=== PATIENT | female | born 1950 | race Caucasian/White ===

== ENCOUNTER 2024-11-22 05:52 | Day surgery (SDC) | payer MEDICARE, SELFPAY ==
[2024-11-22] VITALS (10 sets, daily range): BP systolic 125–152; BP diastolic 62–73; PULSE 60–93; RESP 12–16; TEMP 36.1–36.8; O2SAT 96–99; BMI 28.9
--- OUTSIDE RECORDS SUMMARY | 2024-11-22 05:57 | XMS RPT_ITS | CCD ---
Author Organization [facility] ion Partnership [facility] Care Team Providers Care Quiller Hand Name Role Phone Prerna Meléndez MD Primary Care Provider Unavailable Primary Care Provider Vishal Batista DO Gail Unavailable [phone] Nitin Underwood LPN Unavailable Unavailable Prerna Meléndez MD Primary Care Provider [phone] Unavailable Primary Care Provider VALENTINA Lay Attending Unavailable Dr. Jalil Garcia MD Attending Provider Jalil Garcia Attending Unavailable Jalil Garcia Attending Unavailable Care Physician, No Primary Primary Care Unava ilable Jalil Garcia Referring Unavailable Jalil Garcia Attending Unavailable Allergies Allergy Classification Reported Allergen(s) Allergy Type Date of Onset Reaction(s) Facility (8 sources) pain relievers [Other] Propensity to adverse reactions 05-18-19 06 Other: See Comments [facility] Work Phone: (2 sources) diphenhydrAMINE Drug Allergy Comprehensiv e Internal Medicine; [facility] Work Phone: (1 source) PAIN RELIVER SUPER STRENGTH; Translations: [PAIN RELIVER SUPER STRENGTH] Propensity to adverse reactions to drug (disorder) 09-10-19 25 [facility] Repository (2 sources) Opioids - Morphine Analogues Propensity to adverse reactions 10-06-19 25 NEEDS FOLLOW-UP [facility] (1 source) Procaine Drug Allergy 11-21-19 25 Nausea/Vom/Isis rrhea [facility] (1 source) Procaine Drug Allergy 11-21-19 [facility] Repository (1 source) Opioids - Morphine Analogues Drug allergy (disorder) 11-21-19 25 [facility] Repository Medications Current Medications Medication Drug Class(es) Dates Sig (Normalized) Sig (Original) Ashwagandha Root Extract 300 mg capsule (1 source) Start: 11-08-2024 take 1 capsule by mouth once daily Jayson Root Extract 300 mg capsule Active 300 mg PO DAILY November 08, 2024 12:00am Calcium (10 sources) Phosphate Binder, Calcium Start: 05-18-2005 CALCIUM 600 600 MG TAB 1200 mg per day 0 05/18/2005 Active Comment on above: 1200 mg per day cholecalciferol 0.025 mg oral tablet (10 sources) Vitamin D take 1 tablet by mouth once daily Cholecalciferol, Vitamin D3, (VITAMIN D) 1,000 unit Tab Take 1,000 Units by mouth once daily. Active Comment on above: Take 1,000 Units by mouth once daily. cholecalciferol 1000 unt / vitamin k2 0.09 mg disintegrating oral tablet (1 source) Vitamin D Start: 11-08-2024 take 1 tablet by mouth once daily Vitamin D3-Vitamin K2 (D3 Plus K2 Dots) 25 mcg (1,000 unit)-90 mcg tablet,disintegra ting Active 1 {tbl} PO DAILY November 08, 2024 12:00am ferrous sulfate (10 sources) FERROUS SULFATE (IRON ORAL) Take by mouth. Active FERROUS SULFATE (IRON ORAL) Take by mouth. 0 Active Comment on above: Take by mouth. fexofenadine hydrochloride 180 mg oral tablet (3 sources) Histamine-1 Receptor Antagonist Start: take 1 tablet by mouth twice daily Fexofenadine (Raysa Allergy) 180 mg tablet Active 180 mg PO TWICE A DAY November 08, 2024 12:00am take 1 mg by mouth once daily fe xofenadine 180 mg oral tablet daily (180 mg) Active Magnesium (1 source) Start: 11-08-2024 take 1 tablet by mouth once daily Magnesium 250 mg tablet Active 250 mg PO DAILY November 08, 2024 12:00am nitrofurantoin, macrocrystals 25 mg / nitrofurantoin, monohydrate 75 mg oral capsule (1 source) Nitrofuran Antibacterial Start: 09-09-2024 End: 09-14-2024 take 1 capsule by mouth twice daily nitrofurantoin monohydrate and macrocrystal (MACROBID) 100 mg capsule Indications: Burning with urination Take 1 capsule by mouth two times a day for 5 days. 10 capsule 09/09/2024 09/14/2024 Active OM-3/E/LINOL/ALA/OL EIC/GLA/LIP (OMEGA 3-6-9 ORAL) (10 sources) OM-3/E/LINOL/ALA /OL EIC/GLA/LIP (OMEGA 3-6-9 ORAL) Take by mouth. Active OM-3/E/LINOL/ALA /OLEIC/GLA/LIP (OMEGA 3-6-9 ORAL) Take by mouth. 0 Active Comment on above: Take by mouth. Tigrett 1-Sqr-Lue-Fish Oil (Tigrett-3) 350 mg-235 mg- 90 mg-597 mg capsule,delayed release(DR/EC) (1 source) Start: 11-08-2024 Tigrett 3-Otr-Bfh-Fish Oil (Tigrett-3) 350 mg-235 mg- 90 mg-597 mg capsule,delayed release(DR/EC) Active 1 NMA PO DAILY November 08, 2024 12:00am vitamin a 2.4 mg oral capsule (1 source) Vitamin A Start: 11-08-2024 Vitamin A 2,400 mcg capsule Active 2400 ug PO DAILY November 08, 2024 12:00am vitamin b12 1 mg oral tablet (10 sources) Vitamin B12 take 1 tablet by mouth once daily cyanocobalamin (VITAMIN B-12) 1,000 mcg ORAL Tab Take 1,000 mcg by mouth once daily. Active Comment on above: Take 1,000 mcg by [facility] once daily. Completed/Discontinued Medications Medication Drug Class(es) Dates Sig (Normalized) Sig (Original) benzonatate 100 mg oral capsule (2 sources) Non-narcotic Antitussive Start: 4 End: 5 take 2 capsules by mouth three times daily as needed for cough Benzonatate 100 MG capsule Discontinued 200 mg PO 3 TIMES DAILY NEEDED as needed for Cough 20 0 May 01, 2014 1:00am November 08, 2024 3:32pm escitalopram 20 mg oral tablet (2 sources) Serotonin Reuptake Inhibitor Start: 4 End: 5 take 1 tablet by mouth once daily Escitalopram Oxalate 20 MG tablet Discontinued 20 mg PO DAILY May 01, 2014 1:00am November 08, 2024 3:32pm hydroCHLOROthiazide 25 mg oral tablet (2 sources) Thiazide Diuretic Start: 4 End: 5 take 1 tablet by mouth once daily Hydrochlorothiazide 25 MG tablet Discontinued 25 mg PO DAILY May 01, 2014 1:00am November 08, 2024 3:32pm lutein 20 mg oral tablet (4 sources) End: 2 lutein 20 mg Tab Take by mouth. 0 01/26/2022 Discontinued Comment on above: Take by mouth. pravastatin sodium 20 mg oral tablet (2 sources) HMG-CoA Reductase Inhibitor Start: 4 End: 5 take 1 tablet by mouth at bedtime Pravastatin 20 MG tablet Discontinued 20 mg PO AT BEDTIME May 01, 2014 1:00am November 08, 2024 3:32pm Problems Active Problems Problem Classification Problem Date Documented Date Episodic/Chronic Disorders of lipid metabolism (10 sources) Hyperlipidemia; Translations: [Hyperlipidemia, unspecified] Onset: 03-11-2006 06-20-2015 Chronic Diverticulosis and diverticulitis (10 sources) Diverticulosis of colon; Translations: [Diverticulosis of large intestine without perforation or abscess without bleeding] Onset: 07-12-2006 07-12-2006 Chronic Genitourinary symptoms and ill-defined conditions (2 sources) Scalding pain on urination ; Translations: [Dysuria] Onset: 09-09-2024 09-09-2024 Episodic Other eye disorders (2 sources) Dermatochalasis of right upper eyelid; Translations: [Dermatochalasis of both upper eyelids] 10-05-2024 Episodic Other eye disorders (2 sources) Ptosis of bilateral eyebrows; Translations: [Brow ptosis, bilateral] 10-05-2024 Episodic Other female genital disorders (10 sources) Simple endometrial glandular hyperplasia without atypia; Translations: [Benign endometrial hyperplasia] Onset: 02-11-2010 02-11-2010 Chronic Other nutritional; endocrine; and metabolic disorders (10 sources) Metabolic syndrome X; Translations: [Metabolic syndrome] Onset: 03-11-2006 03-11-2006 Chronic Other nutritional; endocrine; and metabolic disorders (4 sources) Overweight in adulthood with body mass index of 25 or more but less than 30; Translations: [BMI 28.0-28.9,adult] 02-17-2023 Episodic Other screening for suspected conditions (not mental disorders or infectious disease) (6 sources) Mammography assessment (Category 3) - Probably benign finding, short interval follow-up; Translations: [Other abnormal and inconclusive findings on diagnostic imaging of breast] Episodic Prolapse of female genital organs (20 sources) Disorder of rectum; Translations: [Rectocele] Onset: 12-29-2010 12-29-2010 Chronic Residual codes; unclassified (4 sources) Influenza vaccination declined; Translations: [Influenza vaccination declined (Renamed from Refused influenza vaccine)] 02-17-2023 Episodic Residual codes; unclassified (4 sources) Non-smoker; Translations: [Nonsmoker] 02-17-2023 Episodic Past or Other Problems Problem Classification Problem Date Documented Da te Episodic/Chronic Benign neoplasm of uterus (10 sources) Uterine leiomyoma; Translations: [Leiomyoma of uterus, unspecified] Onset: 11-10-2007 11-10-2007 Episodic Cancer of cervix (10 sources) Cervical atypism; Translations: [Atypical squamous cells of undetermined significance on cytologic smear of cervix (ASC-US)] Onset: 12-29-2010 12-29-2010 Episodic Essential hypertension (2 sources) Benign essential hypertension; Translations: [Essential (primary) hypertension] Onset: 03-11-2006 Resolved: 09-06-2018 09-06-2018 Chronic Hemorrhoids (10 sources) External hemorrhoids; Translations: [Residual hemorrhoidal skin tags] Onset: 07-12-2006 07-12-2006 Episodic Menopausal disorders (2 sources) Menopausal symptom; Translations: [Menopausal and female climacteric states] Onset: 05-28-2011 Resolved: 10-16-2016 10-16-2016 Chronic Menstrual disorders (2 sources) Irregular periods; Translations: [Irregular menstruation, unspecified] Onset: 11-10-2007 Resolved: 05-28-2011 05-28-2011 Chronic Other and unspecified benign neoplasm (2 sources) Benign neoplasm of colon; Translations: [Benign neoplasm of colon, unspecified] Onset: 07-12-2006 Resolved: 09-11-2016 09-11-2016 Episodic Other female genital disorders (2 sources) Mucous polyp of cervix; Translations: [Polyp of cervix uteri] Onset: 12-23-2009 Resolved: 01-06-2012 01-06-2012 Episodic Other inflammatory condition of skin (2 sources) Pruritus of genital organs; Translations: [Anogenital pruritus, unspecified] Onset: 11-10-2007 Resolved: 12-23-2009 12-23-2009 Episodic Unclassified (2 sources) Results Test Name Value Interpretation Reference Range Katiuska jimenez Plastic Surgery Visit Report on 11-20-2024 Plastic Surgery Visit Report [facility]astic [facility] Surgery [address], [address] [place] [address] OFFICE VISIT Date of Service: 11/20/24 MR#: [id number] Acct: [id number] Name: KARIS LOCKHART Rep #: [id number] : 1950 Provider: Dr. Jalil Garcia MD Age/Sex: 74/F Location: [facility] Status: Signed Intake Vital Signs 10/05/24 14:46 11/20/24 16:26 Height 4 ft 11 in Weight: 145 lb BMI 29.2 BP 146/54 H Blood Pressure Location Rt brachial Position Sitting Respiration 18 Pulse 55 L Pulse Source Monitor Pulse Oximetry (%) 95 Oxygen Delivery Method room air Intake Visit Reasons: PREOP Chief Complaint: upper Bleph Is patient in pain?: No Allergies procaine (From Novocain) Adverse Reaction (Severe, Verified 11/20/24 16:25) Nausea/Vom/Diarrhea Opioids - Morphine Analogues Adverse Reaction (Verified 11/20/24 16:25) NEEDS FOLLOW-UP Medications ???Medication ???Instructions ???Recorded ???Confirmed ???Type kylaha root extract 300 mg 300 mg PO DAILY 11/08/24 11/20/24 History capsule fexofenadine 180 mg tablet 180 mg PO BID 11/08/24 11/20/24 Hi story (Raysa Allergy) magnesium 250 mg tablet 250 mg PO DAILY 11/08/24 11/20/24 History omega 3 350 mg-dha 235 mg-epa 90 1 cap PO DAILY 11/08/24 11/20/24 H istory mg-fish oil 597 mg capsule,delay rel (Tigrett-3) vitamin A 2,400 mcg capsule 2,400 mcg PO DAILY 11/08/24 History vitamin D3 25 mcg (1,000 unit)-vit 1 tab PO DAILY 11/08/24 11/20/24 History K2 90 mcg disintegrating tablet (D3 Plus K2 Dots) Have you fallen in the past year?: No Nurse's Note: pre op appt [facility] Medical History Wears glasses Kidney stones Migraine headache MTHFR gene mutation Non-smoker History of irregular heartbeat Surgical History History of loop electrosurgical excision procedure (LEEP) of cervix Hx of bilateral breast reduction surgery Family History Other Breast cancer Hypertension Social History Smoking Status: Never smoker HPI PREOP Details: Karis Lockhart is a delightful 74-year-old female 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 Patient reports that she has been having issues with seeing for the past couple of years as her eyelid skin has become more more redundant. She reports that she has to move her entire neck when stopped at a stoplight to see the light, or when looking up at people were taller than her, as the upper eyelid skin obstructs her vertical and horizontal gaze. Patient has never had any eye pathology before. She has never had any eye surgery. She does have dry eyes. Patient is not a smoker. No personal or family history of bleeding or clotting problems. Current encounter, 20 November 2024: I talked to the patient extensively today about the upcoming surgery. We talked about the risks, benefits, and alternatives of the surgery, as well as the details of the surgery (including planned incisions, and anticipated postoperative course and swelling). Exam Details Pupils: PERRL EOM: EOM intact bilaterally Scalp: High hair line Forehead: Convex. Some Chronic frontalis use to overcome dermatochalasis/brow ptosis. (horizontal rhytids at rest). I had her close her eyes, relax her forehead, and then open her eyes again and there was significant visual field obstruction. Eyebrows: Ptotic at the orbital rim bilaterally. Patient wears makeup to pain brows, but also has hair (does not completely pluck). Symmetric brow elevation ( frontal branch of facial nerve working). Eyelids: * MRD 1 was 5 mm * Good levator function (approximately 14 mm) * No lagophthalmos * Snap back test: Slow, and there's 1 cm of lower eyelid retraction * Neutral vector * Upper lid dermatochalasis bilaterally, obstructing vertical gaze bilaterally secondary to the skin. The skin is hanging over her eyelashes and the lateral portions of her lid margin. Lower eyelid has puffy retroseptal fat with tear trough Coding Level of Care Code No Charge Diagnoses Brow ptosis, bilateral H57.813 Dermatochalasis of both upper eyelids H02.831; H02.834 Assessment and Plan (No Qualifiers) Assessment and Plan (1) Brow ptosis, bilateral: Status: Acute (2) Dermatochalasis of both upper eyelids: Status: Acute Plan Patient has 2 separate problems, one is brow ptosis contributing to the redundant upper eyelid skin, the other is the redundant upper eyelid skin in general. I showed the patient the contributions of the brow lift by lifting her brows in front of a mirror today in (more content not included)... Normal [facility] Plastic Surgery Visit Report on 10-05-2024 Plastic Surgery Visit Report [facility] [address] [place] [address] OFFICE VISIT Date of Service: 10/05/24 MR#: [id number] Acct: [id number] Name: KARIS LOCKHART Rep #: [id number] : 1950 Provider: Dr. Jalil Garcia MD Age/Sex: 74/F Location: [facility] Status: Signed Intake Vital Signs 10/05/24 14:34 10/05/24 14:46 Height 4 ft 11 in Weight: 145 lb BMI 29.2 BP 152/84 H Blood Pressure Location Lt brachial Position Sitting Respiration 18 Pulse 61 Pulse Source Monitor Pulse Oximetry (%) 97 Oxygen Delivery Method room air Intake Visit Reasons: UPPER BLEPH Chief Complaint: upper Bleph Is patient in pain?: No Allergies Opioids - Morphine Analogues Adverse Reaction (Verified 10/05/24 14:34) NEEDS FOLLOW-UP Medications ???Medication ???Instructions ???Recorded ???Confirmed ???Type benzonatate 100 mg capsule 200 mg (2 x 100 mg) PO TID PRN PRN 05/01/14 10/05/24 Rx Cough #20 caps escitalopram oxalate 20 mg tablet 20 mg PO DAILY 05/01/14 10/05/24 History hydrochlorothiazide 25 mg tablet 25 mg PO DAILY 05/01/14 10/05/24 H istory pravastatin 20 mg tablet 20 mg PO QHS 05/01/14 10/05/24 His tory Have you fallen in the past year?: No PFSH Family History Other Breast cancer Hypertension Social History Smoking Status: Never smoker HPI UPPER BLEPH Details: Karis Lockhart is a delightful 74-year-old female 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 Patient reports that she has been having issues with seeing for the past couple of years as her eyelid skin has become more more redundant. She reports that she has to move her entire neck when stopped at a stoplight to see the light, or when looking up at people were taller than her, as the upper eyelid skin obstructs her vertical and horizontal gaze. Patient has never had any eye pathology before. She has never had any eye surgery. She does have dry eyes. Patient is not a smoker. No personal or family history of bleeding or clotting problems. ROS General General: Yes good health; No fatigue, fever(s) or weight loss HENMT HENMT: No rhinitis, sore throat/mouth sore, nasal congestion, contacts or glaucoma Endo Endocrine: No thyroid disease, polydipsia, heat intolerance, cold intolerance, hepatitis or excessive urine Skin Skin: No Bleeding, bruising, changing moles or suspicious lesion Musc Musculoskeletal: No joint pain, joint stiffness, muscle weakness, back pain, osteoarthritis or Muscle aches/ myalgia Neuro Neurological: No headache(s), No lightheadedness and No numbness Cardio Cardiovascular: No chest pain, pacemaker, fatigue or shortness of breat with exertion Psych Psychiatric: No depression, claustrophobia or anxiety Resp Respiratory: No spitting up, shortness of breath, sleep apnea, asthma, emphysema, TB, Cough or Smoker Gastro Gastrointestinal: No diarrhea, constipation, blood in stool, nausea, vomiting or abdominal bloating David Hematologic: No anemia, No bleeding and No abnormal bleeding Genitourinary: No urinary frequency, blood in urine or incontinence Exam Details Pupils: PERRL EOM: EOM intact bilaterally Scalp: High hair line Forehead: Convex. Some Chronic frontalis use to overcome dermatochalasis/brow ptosis. (horizontal rhytids at rest). I had her close her eyes, relax her forehead, and then open her eyes again and there was significant visual field obstruction. Eyebrows: Ptotic at the orbital rim bilaterally. Patient wears makeup to pain brows, but also has hair (does not completely pluck). Symmetric brow elevation ( frontal branch of facial nerve working). Eyelids: * MRD 1 was 5 mm * Good levator function (approximately 14 mm) * No lagophthalmos * Snap back test: Slow, and there's 1 cm of lower eyelid retraction * Neutral vector * Upper lid dermatochalasis bilaterally, obstructing vertical gaze bilaterally secondary to the skin. The skin is hanging over her eyelashes and the lateral portions of her lid margin. Lower eyelid has puffy retroseptal fat with tear trough Coding Level of Care Code Off vis,new,level 3 Diagnoses Brow ptosis, bilateral H57.813 Dermatochalasis of both upper eyelids H02.831; H02.834 Assessment and Plan (No Qualifiers) Assessment and Plan (1) Brow ptosis, bilateral: Status: Acute (2) Dermatochalasis of both upper eyelids: Status: Acute Plan Patient has 2 separate problems, one is brow ptosis contributing to the redundant upper eyelid skin, the other is the redundant upper eyelid skin in general. I showed the patient the contributions of the brow lift by lifting her brows in (more content not included)... Normal [facility] Bacteria Ur Culton Bacteria identified Cx Nom (U) ORGANISM ID: 1 50,000-<100,000 CFU/ml Normal urogenital clinton Normal [facility] Comment on above: Performed By: #### 6 30-4 #### [facility] CLIA [id number] [address] [place] [address] [place] CNOVon 09-09-2024 CNOV Office Visit (UCWSTR ) KARIS LOCKHART ([id number]) 1950 F Date Time Provider Department 09/09/24 8:15 AM [facility] During your visit today, we recorded the following information about you: Temperature Pulse Respiration Blood pressure 97.5 degrees 66/minute 16/minute 122/66 Weight 67.9 kg Valentina Lopes APRN.RED HAT ENGINEER 09/09/2024 8:21 AM Signed [facility] Subjective Karis Lockhart is a 74 year old female. Patient presents with: Urinary Problem: burning with urination and nausea x 2 days Patient came in with complaints of burning when she urinates. Patient also had a little nausea. Patient says this is her normal UTI symptoms. Patient denies fever chills abdominal pain or back pain. Patient is traveling up from [place]. The history is provided by the patient. No infection control rn was used. Review of Systems Constitutional: Negative. HENT: Negative. Genitourinary: Positive for dysuria. Objective BP 122/66 Pulse 66 Temp 36.4 ?C (97.5 ?F) Resp 16 Wt 67.9 kg (149 lb 11.1 oz) LMP 01/31/2010 SpO2 96% BMI 31.29 kg/m? Physical Exam Constitutional: Appearance: Normal appearance. HENT: Right Ear: Tympanic membrane, ear canal and external ear normal. Left Ear: Tympanic membrane, ear canal and external ear normal. Mouth/Throat: Mouth: Mucous membranes are moist. Pharynx: Oropharynx is clear. Eyes: Pupils: Pupils are equal, round, and reactive to light. Cardiovascular: Rate and Rhythm: Normal rate and regular rhythm. Heart sounds: Normal heart sounds. Pulmonary: Effort: Pulmonary effort is normal. Breath sounds: Normal breath sounds. Abdominal: General: Abdomen is flat. Palpations: Abdomen is soft. Tenderness: There is no abdominal tenderness. There is no right CVA tenderness, left CVA tenderness or guarding. Neurological: Mental Status: She is alert. 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 Cholecalciferol, Vitamin D3, (VITAMIN D) 1,000 unit Tab Take 1,000 Units by mouth once daily. OM-3/E/LINOL/ALA/OLEI C/GLA/LIP (OMEGA 3-6-9 ORAL) Take by mouth. cyanocobalamin (VITAMIN B-12) 1,000 mcg ORAL Tab Take 1,000 mcg by mouth once daily. FERROUS SULFATE (IRON ORAL) Take by mouth. CALCIUM 600 600 MG TAB 1200 mg per day FAMILY HISTORY Problem Relation Age of Onset Breast Cancer Mother other (Shazia Stein) Mother 2010 Heart Father kidney problems other (Gall bladder) Father Breast Cancer Maternal Grandmother Diabetes Other uncle paternal Social History Tobacco Use Smoking status: Never Smokeless tobacco: Never Vaping Use Vaping status: Never Used Substance Use Topics Alcohol use: Yes Comment: occassionally Drug use: No {ASSESSMENT/PLAN: 1. Burning with urination - ICD9: 788.1, ICD10: R30.0 acute - Send urine for culture - Patient education for prevention given - UA DIP, URINE (POC) - BACTERIAL CULTURE, URINE - NITROFURANTOIN MONOHYDRATE AND MACROCRYSTAL 100 MG ORAL CAP Patient agreeable to care plan Valentina Lopes APRN.RED HAT ENGINEER MDM Procedures Allergies As of Date: 09/09/2024 Noted Allergy Reaction PAIN RELIVER SUPER STRENGTH 09/09/2024 16 - Unknown Comments: "narcotics" sensitive- spacy feeling Date Reviewed: 09/09/2024 Reviewed by: Shruti Atwood MA - Fully Assessed Reason for Visit: Urinary Problem [252] Cmt: burning with urination and nausea x 2 days Primary Visit Diagnosis:Burning with urination [R30.0] Order(s):UA DIP, URINE (POC) [7198743] Order #: [id number]. #:[id number] BACTERIAL CULTURE, URINE [SQURCUL] Order #: [id number]. #:[id number] nitrofurantoin monohydrate and macrocrystal (MACROBID) 100 mg capsuleTake 1 capsule by mouth two times a day for 5 days.Disp: 10 capsuleRfl: 0 Prescriptions as of 09/09/2024 - nitrofurantoin monohydrate and macrocrystal (MACROBID) 100 mg capsule Take 1 capsule by mouth two times a day for 5 days. - Cholecalciferol, Vitamin D (more content not included)... Normal [facility] UA DIP, URINE (POC)on 2024 BILIRUBIN UA (POCT) Negative Negative [facility] CLARITY UA (POCT) Clear [facility] COLOR UA (POCT) Yellow [facility] GLUCOSE UA (POCT) Negative Negative mg/dL [facility] Hemoglobin Ql (U) Trace-intact Abnormal Negative [facility] Interpretation and review of laboratory results Abnormal [facility] KETONE UA (POCT) Negative Negative mg/dL [facility] LEUKOCYTES UA (POCT) Small Abnormal Negative [facility] NITRITE UA (POCT) Negative Negative [facility] PH UA (POCT) 6.5 4.5 - 8.0 [facility] Protein Ql (U) Negative Negative mg/dL [facility] SPECIFIC GRAVITY UA (POCT) 1.01 1.005 - 1.030 [facility] UROBILINOGEN UA (POCT) 0.2 Normal E.U./dL [facility] Location:[facility], [address] [place] [address], [place], [address] [facility] POINT OF CARE [facility] RENETTA SCREENING W TOMOon 01-25 [facility] BREAST LTD RTon 3 [facility] RENETTA DIAGNOSTIC BILATon 01-21 [facility] BREAST LTD RTon 2 [facility] No Panel Informationon 02-26 [facility] Vital Signs Date Time Vital Sign Value Performing Clinician Facility 11-20-2024 16:26-0400 Diastolic blood pressure 54 mm[Hg] Dr. Jalil Garcia MD Work Phone: [facility] 11-20-2024 16:26-0400 Heart rate 55 /min Dr. Jalil Garcia MD Work Phone: [facility] 11-20-2024 16:26-0400 Respiratory rate 18 /min Dr. Jalil Garcia MD Work Phone: [facility] 11-20-2024 16:26-0400 SaO2% (BldA) [Mass fraction] 95 % Dr. Jalil Garcia MD Work Phone: [facility] 11-20-2024 16:26-0400 Systolic blood pressure 146 mm[Hg] Dr. Jalil Garcia MD Work Phone: [facility] 10-05-2024 14:46-0400 Body height 149.[address] Jalil Garcia MD Work Phone: [facility] 10-05-2024 14:46-0400 Body mass index (BMI) [Ratio] 29.2 kg/m2 Dr. Jalil Garcia MD Work Phone: [facility] 10-05-2024 14:46-0400 Body weight 65.[address] Jalil Garcia MD Work Phone: [facility] 10-05-2024 14:34-0400 Diastolic blood pressure 84 mm[Hg] Dr. Jalil Garcia MD Work Phone: [facility] 10-05-2024 14:34-0400 Heart rate 61 /min Dr. Jalil Garcia MD Work Phone: [facility] 10-05-2024 14:34-0400 Respiratory rate 18 /min Dr. Jalil Garcia MD Work Phone: [facility] 10-05-2024 14:34-0400 SaO2% (BldA) [Mass fraction] 97 % Dr. Jalil Garcia MD Work Phone: [facility] 10-05-2024 14:34-0400 Systolic blood pressure 152 mm[Hg] Dr. Jalil Garcia MD Work Phone: [facility] 09-09-2024 08:11-0400 Body mass index (BMI) [Ratio] 31.29 kg/m2 Valentina Lopes APRN.RED HAT ENGINEER Work Phone: [facility] 09-09-2024 08:11-0400 Body temperature 97.5 [degF] Valentina Lopes APRN.RED HAT ENGINEER Work Phone: [facility] 09-09-2024 08:11-0400 Body weight 67.9 kg Valentina Lopes APRN.RED HAT ENGINEER Work Phone: [facility] 09-09-2024 08:11-0400 Diastolic blood pressure 66 mm[Hg] Valentina Lopes APRN.RED HAT ENGINEER Work Phone: [facility] 09-09-2024 08:11-0400 Heart rate 66 /min Valentina Lopes APRN.RED HAT ENGINEER Work Phone: [facility] 09-09-2024 08:11-0400 Respiratory rate 16 /min Valentina Lopes APRN.RED HAT ENGINEER Work Phone: [facility] 09-09-2024 08:11-0400 SaO2% (BldA) [Mass fraction] 96 % Valentina Lopes APRN.RED HAT ENGINEER Work Phone: [facility] 09-09-2024 08:11-0400 Systolic blood pressure 122 mm[Hg] Valentina Lopes APRN.RED HAT ENGINEER Work Phone: [facility] 02-17-2023 14:55-0400 Body height 149.86 cm [facility] Work Phone: 02-17-2023 14:55-0400 Body mass index (BMI) [Ratio] 28.78 kg/m2 [facility] Work Phone: 02-17-2023 14:55-0400 Body surface area Derived from formula 1.6 m2 [facility] Work Phone: 02-17-2023 14:55-0400 Body temperature 96.9 [degF] Nitin Underwood [facility] Work Phone: 02-17-2023 14:55-0400 Body weight 64.64 kg Nitin Kj [facility] Work Phone: 02-17-2023 14:55-0400 Diastolic blood pressure 72 mm[Hg] Nitin Kj [facility] Work Phone: Comment on above: Patient Position: Sitting; Cuff Location : Left Arm; Cuff Size: Standard 02-17-2023 14:55-0400 Heart rate 60 /min Nitincory Underwood [facility] Work Phone: Comment on above: Pattern: Regular 02-17-2023 14:55-0400 Respiratory rate 18 /min Nitincory Underwood [facility] Work Phone: Comment on above: Pattern: Unlabored 02-17-2023 14:55-0400 SaO2% (BldA) [Mass fraction] 96 % Nitin Kj [facility] Work Phone: Comment on above: Room air 02-17-2023 14:55-0400 Systolic blood pressure 126 mm[Hg] Nitin Irma [facility] Work Phone: Comment on above: Patient Position: Sitting; Cuff Location : Left Arm; Cuff Size: Standard Encounters Encounter Date Encounter Type Care Provider Facility Start: 11-22-2024 ambulatory No Primary Car e Physician Facility:[facility] Start: 11-20-2024 End: 11-20-[address] Jalil Garcia MD -[facility] Work Phone: Start: 11-20-2024 End: 11-20-2024 ambulatory Jalil Garcia -[facility] Start: 10-05-2024 End: 10-05-[address] Jalil Garcia MD -[facility] Work Phone: Start: 10-05-2024 End: 10-05-2024 ambulatory Jalil Garcia [facility] Work Phone: Start: 09-09-2024 End: 11-09-2024 Follow-up encounter Valentina Lopes SOUND PRINTER.RED HAT ENGINEER Work Phone: [facility] Start: 09-09-2024 End: 09-09-2024 Patient encounter procedure Valentina Lopes APRN.RED HAT ENGINEER Work Phone: [facility] Comment on above: Burning with urinati on (Primary Dx) Start: 09-09-2024 End: 09-09-2024 ambulatory VALENTINA LOPES Facility:[facility] Start: 02-17-2023 End: 02-17-2023 Initial preventive medicine new patient 67yrs&> Gail Batista DO Work Phone: [facility] Start: 02-17-2023 End: 02-17-2023 Patient encounter status Gail Batsita DO Work Phone: [facility] Work Phone: Start: 01-26-2023 Documentation procedure Mammog sakina Coordinator [facility] Start: 01-26-2023 Letter encounter Mammography Coordinator [facility] Department Start: 01-25-2023 End: 01-25-2023 Subsequent hospital visit by physician [facility] Comment on above: Encounter for screen ing mammogram for malignant neoplasm of breast [Z12.31] Start: 09-22-2022 End: 09-22-2022 Subsequent hospital visit by physician [facility] Work Phone: Radiology Comment on above: Abnormal mammogram [ R92.8] Start: 01-21-2022 End: 01-21-2022 Subsequent hospital visit by physician [facility] Work Phone: Radiology Comment on above: Category 3 mammograp hy result with short follow-up interval suggested for probably benign finding [R92.8] Start: 11-25-2021 ambulatory Leeanna Harding MD Work Phone: OB/Gynecology Comment on above: Mammogram Start: 11-20-2021 End: 11-20-2021 Subsequent hospital visit by physician Screen Mammo [facility] Comment on above: Canceled (CC cx: Equ ipment, Prep, Appropriateness) Start: 02-26-2021 End: 02-26-2021 Subsequent hospital visit by physician Procedure Mammo [facility] Comment on above: Abnormal mammogram [ R92.8] Start: 09-06-2018 Patient encounter procedure Leeanna Harding MD Work Phone: [facility] Work Phone: Procedures Date Procedure Procedure Detail Performing Clinician Start: 09-09-2024 Urnls dip stick/tabl et rgnt auto w/o microscopy Valentina Lopes APRN.RED HAT ENGINEER Work Phone: Start: 01-28-2023 End: 01-28-2023 [facility]: Normal. Dr. Annmarie Mcgee Start: 01-25-2023 End: 01-25-2023 Screening mammography [facility] Comment on above: [facility] Start: 09-22-2022 Us breast uni real t navi with image limited Leeanna Harding MD Work Phone: Start: 01-21-2022 Us breast uni real t navi with image limited Ashlyaparna Sewell SOUND PRINTER.CNM Work Phone: Start: 01-21-2022 Diagnostic mammograp hy computer-aided detcj bi Ashly Sewell SOUND PRINTER.CNM Work Phone: Start: 02-26-2021 Bx breast w/device 1 st lesion ultrasound guid Phillip Stewart MD Work Phone: Start: 02-26-2021 Diagnostic mammograp hy computer-aided detcj uni Phillip Stewart MD Work Phone: Start: 02-24-2021 Mammography Leeanna Harding MD Work Phone: Start: 09-12-2018 End: 09-12-2018 Bone density scan Nitin Irma [facility] Comment on above: [facility] Start: 08-31-2018 Lipid 1996 panel - S amirah or Plasma Mammography Coordinator Start: 11-27-2016 End: 11-27-2016 Screening colonoscopy Nitin Irma [facility] Comment on above: Normal. [facility] chary Ybarra Start: 11-27-2016 Colonoscopy Leeanna Harding MD Work Phone: Start: 10-16-2016 End: 10-16-2016 Microscopic examination of cervical Papanicolaou smear Nitin Kj [facility] Comment on above: Dr. Ben Harding Start: 01-28-2010 End: 01-28-2010 Hysteroscopy Nitin Kj [facility] Start: 07-24-1996 End: 07-24-1996 Reduction mammoplasty, bilateral Nitin Kj [facility] Comment on above: Dr. Arteaga Plan of Treatment Date Care Activity Detail Author Start: 2027 RSV Vaccine (1 - 1-d ose 75+ series) RSV Vaccine (1 - 1-dose 75+ series) [facility] Start: 11-27-2026 Colonoscopy COLONOSCOPY [facility] Start: 11-27-2026 COLORECTAL CANCER SCREENING COLORECTAL CANCER SCREENING [facility] Start: 11-27-2026 Screening for malign ant neoplasm of colon [facility] Start: 01-01-2025 Influenza vaccination [facility] Start: 05-03-2024 Advance Directive Discussion Advance Directive Discussion [facility] Start: 05-03-2024 Medicare Advantage Annual Wellness Visit Medicare [facility] Annual Wellness Visit [facility] Start: 01-26-2024 Mammography Mammogram Screening [facility] Start: 01-26-2024 Screening for malign ant neoplasm of breast Mammogram Screening [facility] Start: 01-02-2024 Covid-19 Vaccine ( season) Covid-19 Vaccine ( season) [facility] Start: 09-07-2023 Pneumococcal Vaccine : 50+ (3 of 3 - PCV20 or PCV21) Pneumococcal Vaccine: 50+ (3 of 3 - PCV20 or PCV21) [facility] Start: 09-01-2023 Lipid 1996 panel - Serum or Plasma Lipid Screening [facility] Start: 09-01-2023 Lipid panel Lipid Screening [facility] Start: 09-01-2023 LIPID SCREEN LIPID SCREEN [facility] Start: 02-17-2023 Glucose quantitative blood xcpt reagent strip GLUCOSE (87793) [facility] Work Phone: Start: 02-17-2023 Lipid panel LIPID PANEL (76433) [facility] Work Phone: Start: 02-17-2023 Procedure Education Eprescribe d prescriptions (G8553) [facility] Work Phone: Start: 01-01-2023 Influenza vaccination Influenza Vacc ine (#1) [facility] Start: 12-10-2022 COLOGUARD (FIT-DNA) COLOGUARD (FIT-D NA) [facility] Start: 12-10-2022 Screening for malign ant neoplasm of colon Cologuard (FIT-DNA) [facility] Start: 12-05-2022 FECAL OCCULT BLOOD FECAL OCCULT BLOO D [facility] Start: 12-05-2022 Screening for malign ant neoplasm of colon Fecal Occult Blood [facility] Start: 05-03-2022 Advance Directive Discussion Advance Directive Discussion [facility] Start: 05-03-2022 Depression Assessment Depression Ass essment [facility] Start: 02-24-2022 Mammography MAMMOGRAM [facility] Start: 01-01-2022 Influenza vaccination INFLUENZA (#1) [facility] Start: 08-31-2021 DIABETES SCREEN DIABETES SCREEN [facility] Start: 08-31-2021 Diabetes Screening Diabetes Screenin g [facility] Start: 05-03-2021 ADVANCE DIRECTIVE DISCUSSION ADVANCE DIRECTIVE DISCUSSION [facility] Start: 09-07-2019 Pneumococcal Vaccine : 65+ (2 - PPSV23 or PCV20) Pneumococcal Vaccine: 65+ (2 - PPSV23 or PCV20) [facility] Start: 09-07-2019 PNEUMOCOCCAL: 65+ (2 - PPSV23 or PCV20) PNEUMOCOCCAL: 65+ (2 - PPSV23 or PCV20) [facility] Start: 10-27-2016 Urine microalbumin profile [facility] Start: 07-03-2013 SHINGRIX VACCINE (2 of 3) SHINGRIX VACCINE (2 of 3) [facility] Start: 2012 RSV Vaccine (1 - 1-d ose 60+ series) RSV Vaccine (1 - 1-dose 60+ series) [facility] Start: [address] COLONOGRAPHY [facility] Start: 1997 FECAL OCCULT BLOOD FECAL OCCULT BLOO D [facility] Start: 1997 Screening for malign ant neoplasm of colon [facility] Start: 1997 SIGMOIDOSCOPY SIGMOIDOSCOPY [facility] Start: 1970 Anxiety Screening Anxiety Screening [facility] Start: 1970 Depression Screening Depression Scre ening [facility] Start: 1964 Adult depression screening assessment DEPRESSION SCREENING [facility] Start: 1952 COVID-19 VACCINE (#1) COVID-19 VACCI NE (#1) [facility] Bacteria identified in Urine by Culture BACTERIAL CULTURE, URINE Microbiology Routine Burning with urination Ordered: 09/09/2024 [facility] Work Phone: Comment on above: Ordered: 09/09/2024 End: 12-25-2022 Diagnostic mammography computer-aided detcj uni [facility] Radiology Routine Category 3 mammography result with short follow-up interval suggested for probably benign finding 1 Occurrences starting 11/25/2021 until 12/25/2022 [facility] Work Phone: Comment on above: 1 Occurrences starti ng 11/25/2021 until 12/25/2022 End: 12-25-2022 Us breast uni real time with image limited US BREAST LTD RT Radiology Routine Category 3 mammography result with short follow-up interval suggested for probably benign finding 1 Occurrences starting 11/25/2021 until 12/25/2022 [facility] Work Phone: Comment on above: 1 Occurrences starti ng 11/25/2021 until 12/25/2022 [facility] Immunizations Immunization Date Immunization Notes Care Provider Lida zelaya 09-06-2018 pneumococcal conjuga te vaccine, 13 valent Leeanna Harding MD Work Phone: [facility] Work Phone: 10-26-2016 tetanus and diphther ia toxoids, adsorbed, preservative free, for adult use (5 Lf of tetanus toxoid and 2 Lf of diphtheria toxoid) Leeanna Harding MD Work Phone: [facility] Work Phone: 10-26-2016 tetanus toxoid, redu jhony diphtheria toxoid, and acellular pertussis vaccine, adsorbed Gail Barbaon DO Work Phone: [facility] Work Phone: 05-08-2013 zoster vaccine, live Leeanna Harding MD Work Phone: [facility] 03-11-2009 influenza virus vaccine, unspecified formulation Leeanna Harding MD Work Phone: [facility] 03-11-2009 influenza, injectabl e, quadrivalent, preservative free Gail Lynne DO Work Phone: [facility]; [facility] Work Phone: 09-06-2008 pneumococcal polysaccharide vaccine, 23 valent Gail Barbaon DO Work Phone: [facility]; [facility] Work Phone: 03-11-2006 tetanus and diphther ia toxoids, adsorbed, preservative free, for adult use (2 Lf of tetanus toxoid and 2 Lf of diphtheria toxoid) Leeanna Harding MD Work Phone: [facility] Payers Date Payer Category Payer Self-pay 2018 Medicare MMO MEDICARE MMO MEDADVANTAGE PPO [id number] 2018-Present [phone] [address] [place] [address] PPO [id number] 2018 Medicare MMO MEDICARE MMO MEDADVANTAGE PPO [id number] 2018-Present [phone] [address] [place] [address] PPO [id number] 2018 Medicare (Managed Care) MMO [employer] PPO [id number] 2018 Unknown [id number] Unknown Unknown [id number] Unknown [id number] Unknown [id number] Social History Date Type Detail Facility Start: 09-17-2011 End: 11-08-2024 Tobacco smoking status NHIS Never smoked tobacco [facility] Start: 01-24-2021 End: 01-26-2022 Alcohol intake Current drinker of alcohol (finding) [facility] Start: 11-27-2016 History SDOH Alcohol Comment occassionally [facility] Start: 1950 Sex Assigned At Female [facility] Start: 01-26-2021 End: 01-21-2022 Exposure to SARS-CoV-2 (event) Not sure [facility] Work Phone: Start: 09-17-2011 End: 01-26-2022 Tobacco use and exposure Smokeless tobacco non-user [facility] Start: 01-26-2022 End: 01-25-2023 History of Social function [facility] Start: 01-26-2022 End: 01-25-2023 Tobacco use panel [facility] National Score (1-10 0), lower number is lower risk 55 [facility] Start: 01-03-2020 Gender identity Identifies as female gender (finding) [facility] Start: 01-03-2020 Sexual orientation Heterosexual (finding) [facility] Functional Status Date Assessment Result Facility 05-08-2014 Are you deaf, or do you have serious difficulty hearing No 05/08/2014 8:59 AM Araseli Villagran RN No [facility] 05-08-2014 Are you blind, or do you have serious difficulty seeing, even when wearing glasses No 05/08/2014 8:59 AM Araseli Villagran RN No [facility] 05-08-2014 Do you have serious difficulty walking or climbing stairs No 05/08/2014 8:59 AM Araseli Villagran RN No [facility] 05-08-2014 Do you have difficul ty dressing or bathing No 05/08/2014 8:59 AM Araseli Villagran RN No [facility] 05-08-2014 Because of a physica l, mental, or emotional condition, do you have difficulty doing errands alone such as visiting a physician's office or shopping No 05/08/2014 8:59 AM Araseli Villagran RN No [facility] Mental Status Date Assessment Result Facility 05-08-2014 Because of a physica l, mental, or emotional condition, do you have serious difficulty concentrating, remembering, or making decisions No 05/08/2014 8:59 AM Araseli Villagran RN No [facility] Clinical Notes 05-28-2011 to 10-05-2024 Note Date & Type Note Facility 10-05-2024 Evaluation note Diagnosis Onset Date Resolution Brow ptosis, bilateral acute Ju 2024 2:09pm Dermatochalasis of both upper eyelids acute October 05, 2024 2:09pm [facility] [employer] [facility] Work Phone: 1(589) 858-332105-10-2025 NoteHNO ID: [id number] Author: VALENTINA LOPES APRN.RED HAT ENGINEER Service: ? Author Type: Nurse Practitioner Type: Progress Notes Filed: 09/09/2024 08:21 Note Text: [facility] Subjective Karis Lockhart is a 74 year old female. Patient presents with: Urinary Problem: burning with urination and nausea x 2 days Patient came in with complaints of burning when she urinates. Patient also had a little nausea. Patient says this is her normal UTI symptoms. Patient denies fever chills abdominal pain or back pain. Patient is traveling up from [place]. The history is provided by the patient. No infection control rn was used. Review of Systems Constitutional: Negative. HENT: Negative. Genitourinary: Positive for dysuria. Objective BP 122/66 Pulse 66 Temp 36.4 ?C (97.5 ?F) Resp 16 Wt 67.9 kg (149 lb 11.1 oz) LMP 01/31/2010 SpO2 96% BMI 31.29 kg/m? Physical Exam Constitutional: Appearance: Normal appearance. HENT: Right Ear: Tympanic membrane, ear canal and external ear normal. Left Ear: Tympanic membrane, ear canal and external ear normal. Mouth/Throat: Mouth: Mucous membranes are moist. Pharynx: Oropharynx is clear. Eyes: Pupils: Pupils are equal, round, and reactive to light. Cardiovascular: Rate and Rhythm: Normal rate and regular rhythm. Heart sounds: Normal heart sounds. Pulmonary: Effort: Pulmonary effort is normal. Breath sounds: Normal breath sounds. Abdominal: General: Abdomen is flat. Palpations: Abdomen is soft. Tenderness: There is no abdominal tenderness. There is no right CVA tenderness, left CVA tenderness or guarding. Neurological: Mental Status: She is alert. 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 Cholecalciferol, Vitamin D3, (VITAMIN D) 1,000 unit Tab Take 1,000 Units by mouth once daily. OM-3/E/LINOL/ALA/OLEIC/GLA/LIP (OMEGA 3-6-9 ORAL) Take by mouth. cyanocobalamin (VITAMIN B-12) 1,000 mcg ORAL Tab Take 1,000 mcg by mouth once daily. FERROUS SULFATE (IRON ORAL) Take by mouth. CALCIUM 600 600 MG TAB 1200 mg per day FAMILY HISTORY Problem Relation Age of Onset Breast Cancer Mother other (Shazia Stein) Mother 2009 Heart Father kidney problems other (Gall bladder) Father Breast Cancer Maternal Grandmother Diabetes Other uncle paternal Social History Tobacco Use Smoking status: Never Smokeless tobacco: Never Vaping Use Vaping status: Never Used Substance Use Topics Alcohol use: Yes Comment: occassionally Drug use: No {ASSESSMENT/PLAN: 1. Burning with urination - ICD9: 788.1, ICD10: R30.0 acute - Send urine for culture - Patient education for prevention given - UA DIP, URINE (POC) - BACTERIAL CULTURE, URINE - NITROFURANTOIN MONOHYDRATE AND MACROCRYSTAL 100 MG ORAL CAP Patient agreeable to care plan Valentina Lopes APRN.[facility]05-10-2025 History of Present illness Narrative* Valentina Lopes APRN.RED HAT ENGINEER - 09/09/2024 8:17 AM EDT [facility] Subjective Karis Lockhart is a 74 year old female. Patient presents with: Urinary Problem: burning with urination and nausea x 2 days Patient came in with complaints of burning when she urinates. Patient also had a little nausea. Patient says this is her normal UTI symptoms. Patient denies fever chills abdominal pain or back pain. Patient is traveling up from [place]. The history is provided by the patient. No infection control rn was used. Review of Systems Constitutional: Negative. HENT: Negative. Genitourinary: Positive for dysuria. Objective BP 122/66 Pulse 66 Temp 36.4 C (97.5 F) Resp 16 Wt 67.9 kg (149 lb 11.1 oz) LMP 01/31/2010 SpO2 96% BMI 31.29 kg/m Physical Exam Constitutional: Appearance: Normal appearance. HENT: Right Ear: Tympanic membrane, ear canal and external ear normal. Left Ear: Tympanic membrane, ear canal and external ear normal. Mouth/Throat: Mouth: Mucous membranes are moist. Pharynx: Oropharynx is clear. Eyes: Pupils: Pupils are equal, round, and reactive to light. Cardiovascular: Rate and Rhythm: Normal rate and regular rhythm. Heart sounds: Normal heart sounds. Pulmonary: Effort: Pulmonary effort is normal. Breath sounds: Normal breath sounds. Abdominal: General: Abdomen is flat. Palpations: Abdomen is soft. Tenderness: There is no abdominal tenderness. There is no right CVA tenderness, left CVA tendernessor guarding. Neurological: Mental Status: She is alert. 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 Cholecalciferol, Vitamin D3, (VITAMIN D) 1,000 unit Tab Take 1,000 Units by mouth once daily. OM-3/E/LINOL/ALA/OLEIC/GLA/LIP (OMEGA 3-6-9 ORAL) Take by mouth. cyanocobalamin (VITAMIN B-12) 1,000 mcg ORAL Tab Take 1,000 mcg by mouth once daily. FERROUS SULFATE (IRON ORAL) Take by mouth. CALCIUM 600 600 MG TAB 1200 mg per day FAMILY HISTORY Problem Relation Age of Onset Breast Cancer Mother other (Guillian Ludlow) Mother 2009 Heart Father kidney problems other (Gall bladder) Father Breast Cancer Maternal Grandmother Diabetes Other uncle paternal Social History Tobacco Use Smoking status: Never Smokeless tobacco: Never Vaping Use Vaping status: Never Used Substance Use Topics Alcohol use: Yes Comment: occassionally Drug use: No {ASSESSMENT/PLAN: 1. Burning with urination - ICD9: 788.1, ICD10: R30.0 acute - Send urine for culture - Patient education for prevention given - UA DIP, URINE (POC) - BACTERIAL CULTURE, URINE - NITROFURANTOIN MONOHYDRATE & MACROCRYSTAL 100 MG ORAL CAP Patient agreeable to care plan Valentina Lopes APRN.RED HAT ENGINEER MDM Procedures [facility] Miscellaneous Notes* Letter - Coordinator, Mammography - 01/26/2023 10:44 AM EDT January 26, 2023 PID: [id number] Karis Lockhart [address] [place] [address] Dear Ms. Lockhart, We are pleased to inform you that the results of your recent breast imaging exam on 01/25/2023 are normal. Early detection of cancer is very important. We also understand recommendations regarding breast cancer screening are controversial. Please discuss with your primary care provider which strategy is best for you and whether a mammogram is right for you. Your imaging studies and report will be kept on file at [facility] as part of your permanent medical record and are available for your continuing care. Thank you for allowing us to help in meeting your health care needs. Sincerely, Dr. Chua Interpreting Radiologist [facility] (Normal over 40) documented in this encounterF[facility]09-25-2023 History of Present illness Narrative* Lesia Kim Mammo Tech - 01/25/2023 8:10 AM EDT Radiology Service Progress Note PATIENT NAME: Karis Lockhart DATE OF SERVICE: January 25, 2023 TIME: 8:01 AM PATIENT IDENTITY VERIFICATION COMPLETED USING TWO (2) IDENTIFIERS: Name and Date of confirmedby patient verbally. FALL SCREENING: Has the patient had 2 falls in the last year or 1 fall with injury or currently using an Ambulatory Assistive Device (Walker, Cane, Wheelchair, Crutches, etc.)? No PATIENT GENDER DATA: Female. status: : No status: NO. PATIENT RELEVANT IMPLANT DATA REVIEWED: Not Applicable RADIOLOGY DEPARTMENT: Mammography PERIPHERAL IV DATA: Not applicable SIGNED BY: Komal Arrieta January 25, 2023 8:01 AM documented [facility] this [facility]05-[facility]23 History of Present illness Narrative* Gisele Ruth RDMS - 09/22/2022 8:30 AM EDT Radiology Service Progress Note PATIENT NAME: Karis Lockhart DATE OF SERVICE: September 22, 2022 TIME: 1:03 PM PATIENT IDENTITY VERIFICATION COMPLETED USING TWO (2) IDENTIFIERS: Name and Date of confirmedby patient verbally. FALL SCREENING: Has the patient had 2 falls in the last year or 1 fall with injury or currently using an Ambulatory Assistive Device (Walker, Cane, Wheelchair, Crutches, etc.)? No PATIENT GENDER DATA: Female. status: : No status: NO. PATIENT RELEVANT IMPLANT DATA REVIEWED: Not Applicable RADIOLOGY DEPARTMENT: Ultrasound PERIPHERAL IV DATA: Not applicable SIGNED BY: Gisele Ruth RDMS September 22, 2022 1:03 PM documented in this [facility]09-21-2022 History of Present illness Narrative* Ashly Mcfarlane RDMS - 01/21/2022 8:30 AM EDT Radiology Service Progress Note PATIENT NAME: Karis Lockhart DATE OF SERVICE: January 21, 2022 TIME: 9:12 AM PATIENT IDENTITY VERIFICATION COMPLETED USING TWO (2) IDENTIFIERS: Name and Date of confirmedby patient verbally. FALL SCREENING: Has the patient had 2 falls in the last year or 1 fall with injury or currently using an Ambulatory Assistive Device (Walker, Cane, Wheelchair, Crutches, etc.)? No PATIENT GENDER DATA: Female. status: : No status: NO. PATIENT RELEVANT IMPLANT DATA REVIEWED: Not Applicable RADIOLOGY DEPARTMENT: Ultrasound PERIPHERAL IV DATA: Not applicable SIGNED BY: Ashly Mcfarlane RDMS [facility] January 21, 2022 9:12 AM documented in this [facility]09-21-2022 History of Present illness Narrative* Asya Stevenson Wipito Tech - 01/21/2022 8:00 AM EDT Radiology Service Progress Note PATIENT NAME: Karis Lockhart DATE OF SERVICE: January 21, 2022 TIME: 7:55 AM PATIENT IDENTITY VERIFICATION COMPLETED USING TWO (2) IDENTIFIERS: Name and Date of confirmedby patient verbally. FALL SCREENING: Has the patient had 2 falls in the last year or 1 fall with injury or currently using an Ambulatory Assistive Device (Walker, Cane, Wheelchair, Crutches, etc.)? No PATIENT GENDER DATA: Female. status: : No status: NO. PATIENT RELEVANT IMPLANT DATA REVIEWED: Not Applicable RADIOLOGY DEPARTMENT: Mammography PERIPHERAL IV DATA: Not applicable SIGNED BY: Nia Mott W[employer] January 21, 2022 7:55 AM documented in this [facility]07-26-2022 Miscellaneous Notes* Telephone Encounter - Ashly Sewell APRN.CNM - 11/25/2021 12:35 PM EDT Order signed. Ashly Sewell APRN.CNM * Telephone Encounter - Charito Sheridan RN - 11/25/2021 9:22 AM EDT DM patient. Orders pending. Charito Sheridan RN documented in this [facility]10-27-2021 History of Present illness Narrative* La Nena Trivedi, RT(R) - 02/26/2021 3:00 PM EDT PATIENT IDENTITY VERIFICATION COMPLETED USING TWO (2) STANDARD IDENTIFIERS: Name and Date of confirmed by patient verbally. Procedure: Ultrasound Breast Clip Placement and Ultrasound Guided Breast Biopsy Site Verification: right No Nursing No Allergies ALLERGIES Allergen Reactions Pain Relievers [Oth* Other: See Comments "narcotics" sensitive- spacy feeling Is the patient having any pain? None Physician, Nurse, Technologist: Phillip Stewart MD, La Nena Winston PREOPERATIVE/PROCEDURAL VERIFICATION: Patient verified by: Name and Date of Procedure to be performed: Ultrasound Breast Clip Placement and Ultrasound Guided Breast Biopsy Site of the procedure confirmed:Yes Site:right Patient position: Supine Equipment/implant present:Clip and Imaging Data Staff involved: Phillip Stewart MD Relevant documentation, images, implants or special equipment present: Yes MARKING THE SITE: Procedural site verified by:Physically marking the site on or near incision site, with persistent marker and remains visible once patient prepped. PROCEDURAL TIME OUT: All team activity stops Time out verification includes:Audible time-out documented: Yes. Time: 15:00 Two Patient Identifiers Correct side and site marking Accurate Consent Agreement on the procedure to be done Correct Positioning Imaging and Test Results Properly Labeled and Displayed Safety Precautions Based on Patient History or Medication Alcohol-based skin prep unit dose applicator used: ChloraPrep No soaking of the patient's hair or linens noted Excess prep absorbed by sterile towels Towels removed prior to draping NUMBER OF SPECIMENS SENT TO LAB: 1 Sign in Communication: Completed Time Out: Team Confirms the Correct Patient, Correct Procedure, Correct Site and Site Marking, Correct Position (if applicable). Time: 15:00 Affirmation of Time Out: YES Sign Out Discussion: Completed Patient given post procedure instructions Procedure Start Time: 14:50 Time Out: 15:00 Procedure End Time: 15:05 Sign Out: 16:00 documented in this [facility]01-26-2012 History of Past illness Narrative* Problem Noted Date Resolved Date Symptomatic menopausal or female climacteric sta mariah 05/28/2011 10/16/2016 Mucous polyp of cervix 12/23/2009 2 Irregular menstrual cycle 11/10/20072011 Pruritus of genital organs 11/10/200712/23 Benign neoplasm of colon 07/12/2006 017 Essential hypertension, benign 03/11/2006 0 09/06/2018 Last Assessment & Plan: BP is well controlled on current regimen of medicines which is tolerated well. No significant side effects documented as of this encounter (statuses as of 11/25/2021) [facility] of Past illness Narrative* Problem Noted Date Resolved Date Symptomatic menopausal or female climacteric sta mariah 05/28/2011 10/16/2016 Mucous polyp of cervix 12/23/2009 2 Irregular menstrual cycle 11/10/20072011 Pruritus of genital organs 11/10/200712/23 Benign neoplasm of colon 07/12/2006 017 Essential hypertension, benign 03/11/2006 0 09/06/2018 Last Assessment & Plan: BP is well controlled on current regimen of medicines which is tolerated well. No significant side effects documented as of this encounter (statuses as of 01/22/2022) [facility] of [facility] illness Narrative* Problem Noted Date Resolved Date Symptomatic menopausal or female climacteric sta mariah 05/28/2011 10/16/2016 Mucous polyp of cervix 12/23/2009 2 Irregular menstrual cycle 11/10/20072011 Pruritus of genital organs 11/10/200712/23 Benign neoplasm of colon 07/12/2006 017 Essential hypertension, benign 03/11/2006 0 09/06/2018 Last Assessment & Plan: BP is well controlled on current regimen of medicines which is tolerated well. No significant side effects documented as of this encounter (statuses as of 01/22/2022) [facility] illness Narrative* Problem Noted Date Diagnosed Date Resolved Date Symptomatic menopausal or fe male climacteric states 05/28/2011 10/16/2016 Mucous polyp of cervix 12/23/200901/05 Irregular menstrual cycle 11/10/2007 Pruritus of genital organs 11/10/2007 0 12/23/2009 Benign neoplasm of colon 07/12/200604/2017 Essential hypertension, benign 03/11/2006 09/06/2018 Last Assessment & Plan: BP is well controlled on current regimen of medicines which is tolerated well. No significant side effects documented as of this encounter (statuses as of 01/28/2023) [facility] of [facility] illness Narrative* Problem Noted Date Diagnosed Date Resolved Date Symptomatic menopausal or fe male climacteric states 05/28/2011 10/16/2016 Mucous polyp of cervix 12/23/200901/05 Irregular menstrual cycle 11/10/2007 Pruritus of genital organs 11/10/2007 0 12/23/2009 Benign neoplasm of colon 07/12/200604/2017 Essential hypertension, benign 03/11/2006 09/06/2018 Last Assessment & Plan: BP is well controlled on current regimen of medicines which is tolerated well. No significant side effects documented as of this encounter (statuses as of 03/07/2023) [facility] of Past illness Narrative* Problem Noted Date Diagnosed Date Resolved Date Symptomatic menopausal or fe male climacteric states 05/28/2011 10/16/2016 Mucous polyp of cervix 12/23/200901/05 Irregular menstrual cycle 11/10/2007 Pruritus of genital organs 11/10/2007 0 12/23/2009 Benign neoplasm of colon 07/12/200604/2017 Essential hypertension, benign 03/11/2006 09/06/2018 Last Assessment & Plan: BP is well controlled on current regimen of medicines which is tolerated well. No significant side effects documented as of this encounter (statuses as of 03/07/2023) [facility] of [facility] illness Narrative* Problem Noted Date Diagnosed Date Resolved Date Symptomatic menopausal or fe male climacteric states 05/28/2011 10/16/2016 Mucous polyp of cervix 12/23/200901/05 Irregular menstrual cycle 11/10/2007 Pruritus of genital organs 11/10/2007 0 12/23/2009 Benign neoplasm of colon 07/12/200604/2017 Essential hypertension, benign 03/11/2006 09/06/2018 Last Assessment & Plan: BP is well controlled on current regimen of medicines which is tolerated well. No significant side effects documented as of this encounter (statuses as of 03/07/2023) [facility] of [facility] illness Narrative* Problem Noted Date Diagnosed Date Resolved Date Symptomatic menopausal or fe male climacteric states 05/28/2011 10/16/2016 Mucous polyp of cervix 12/23/200901/05 Irregular menstrual cycle 11/10/2007 Pruritus of genital organs 11/10/2007 0 12/23/2009 Benign neoplasm of colon 07/12/200604/2017 Essential hypertension, benign 03/11/2006 09/06/2018 Last Assessment & Plan: BP is well controlled on current regimen of medicines which is tolerated well. No significant side effects documented as of this encounter (statuses as of 03/07/2023) [facility]* Diagnosis Category 3 mammography result with short follow-up interval suggested for probably benign finding- Primary Inconclusive mammogram documented in this encounter [facility]* Diagnosis Category 3 mammography result with short follow-up interval suggested for probably benign finding Inconclusive mammogram [facility] Diagnosis Category 3 mammography result with short follow-up interval suggested for probably benign finding Inconclusive mammogram [facility]* Diagnosis Encounter for screening mammogram for malignant neoplasm of breast Other screening mammogram documented [facility] this encounter [facility]* Diagnosis Abnormal mammogram Abnormal mammogram, unspecified documented in this encounter [facility] note* Diagnosis Abnormal mammogram Abnormal mammogram, unspecified documented [facility] this [facility]* Diagnosis Irritable bowel syndrome with constipation- Primary Irritable bowel syndrome Hyperlipidemia, unspecified hyperlipidemia type Essential hypertension, benign Need for vaccination Need for prophylactic vaccination and inoculation against unspecified single disease Burning with urination- Primary Dysuria documented in this encounter [facility] noteNo assessment information availableKaiser Foundation Hospital Work Phone: Instructions* Name Dates Details Patient Instructions Indication:Nonsmoker Start:17-Feb-2023 Instruction Type:Provider Instructions for Treatment How to Access Health Informa tiin2nite Online using Patient Portal and 3rd [employer] Apps Indication:Nonsmoker Start:17-Feb-2023 Instruction Type:Patient Education [facility]; [facility] Work Phone: reason for referral (narrative)* Diagnostic Procedure Only (Routine) - Pending Review Specialty Diagnoses / Procedures Referred By Richie t Referred To Contact [facility] Diagnoses Category 3 mammography result with short follow-up interval suggested for probably benign finding Procedures US BREAST LTD RT US BREAST UNI REAL TIME WITH IMAGE LIMITED Ashly Sewell APRN.CNM [address] [place] [address] [facility] [address] [place] [address] Referral ID Status Reason Start Date Expiration Date Visits Requested Visits Authorized [id number] Pending Review Auto-Generat ed Referral 11/25/2021 12/25/2022 1 1 * Diagnostic Procedure Only (Routine) - Pending Review Specialty Diagnoses / Procedures Referred By Richie joseph Referred To Contact [facility] Diagnoses Category 3 mammography result with short follow-up interval suggested for probably benign finding Procedures RENETTA DIAGNOSTIC RT DIAGNOSTIC MAMMOGRAPHY COMPUTER-AIDED DETCJ UNI Ashly Sewell APRN.CNM [address] [place] [address] [facility] [address] [place] [address] Referral ID Status Reason Start Date Expiration Date Visits Requested Visits Authorized [id number] Pending Review Auto-Generat ed Referral 11/25/2021 12/25/2022 1 1 [facility] for referral (narrative)* Diagnostic Procedure Only (Routine) - Closed Specialty Diagnoses / Procedures Referred By Richie joseph Referred To Contact [facility] Diagnoses Category 3 mammography result with short follow-up interval suggested for probably benign finding Procedures US BREAST LTD RT US BREAST UNI REAL TIME WITH IMAGE LIMITED Ashly Sewell APRN.CNM [address] [place] [address] [facility] [address] [place] [address] Referral ID Status Reason Start Date Expiration Date V isits Requested Visits Authorized [id number] Closed Auto-Generate d Referral 11/25/2021 12/25/2022 1 1 [facility] for referral (narrative)* Diagnostic Procedure Only (Routine) - Closed Specialty Diagnoses / Procedures Referred By Contac t Referred To Contact [facility] Diagnoses Encounter for screening mammogram for malignant neoplasm of breast Procedures RENETTA SCREENING W BECKIE SCREENING DIGITAL BREAST TOMOSYNTHESIS BI SCREENING MAMMOGRAPHY BI 2-VIEW BREAST INC CAD Leeanna Delgado MD [address] [place] [address] [facility] [address] [place] [address] Referral ID Status Reason Start Date Expiration Date V isits Requested Visits Authorized [id number] Closed Auto-Generate d Referral 01/26/2022 02/25/2023 1 1 [facility] for referral (narrative)* Diagnostic Procedure Only (Routine) - Closed Specialty Diagnoses / Procedures [facility] Referred To Contact [facility] Diagnoses Abnormal mammogram Procedures US BIOPSY BREAST RT BREAST BIOPSY W/ULTRASOUND GUIDANCE Phillip Stewart MD [address] [address] [facility] [address] [place] [address] Referral ID Status Reason Start Date Expiration Date V isits Requested Visits Authorized [id number] Closed Auto-Generate d Referral 02/26/2021 03/28/2022 1 1 [facility] for referral (narrative)* Diagnostic Procedure Only (Routine) - Closed Specialty Diagnoses / Procedures [facility] Referred To Contact [facility] Diagnoses Abnormal mammogram Procedures US BREAST LTD RT US BREAST UNI REAL TIME WITH IMAGE LIMITED Leeanna Delgado MD [address] [place] [address] [facility] [address] [place] [address] Referral ID Status Reason Start Date Expiration Date V isits Requested Visits Authorized [id number] Closed Auto-Generate d Referral 07/21/2022 02/20/2023 1 1 [facility] for referral (narrative)No reason for referral information availableSchneck Medical Center Services Work Phone: Reason for visit Narrative* Diagnostic Procedure Only (Routine) - Closed Specialty Diagnoses / Procedures Referred By Contac t Referred To Contact [facility] Diagnoses Category 3 mammography result with short follow-up interval suggested for probably benign finding Procedures RENETTA DIAGNOSTIC RT DIAGNOSTIC MAMMOGRAPHY COMPUTER-AIDED DETCJ Ashly De La Garza APRN.CN [address] [place] [address] [facility] [address] [place] [address] Referral ID Status Reason Start Date Expiration Date V isits Requested Visits Authorized [id number] Closed Auto-Generate d Referral 11/25/2021 12/25/2022 1 1 [facility] for visit Narrative* Diagnostic Procedure Only (Routine) - Closed Specialty Diagnoses / Procedures Referred By Richie joseph Referred To Contact [facility] Diagnoses Encounter for screening mammogram for malignant neoplasm of breast Procedures RENETTA SCREENING W BECKIE SCREENING DIGITAL BREAST TOMOSYNTHESIS BI SCREENING MAMMOGRAPHY BI 2-VIEW BREAST INC CAD Leeanna Delgado MD [address] [place] [address] [facility] [address] [place] [address] Referral ID Status Reason Start Date Expiration Date V isits Requested Visits Authorized [id number] Closed Auto-Generate d Referral 01/26/2022 02/25/2023 1 1 [facility] Advance Directives No Advanced Directives Records FoundDocuments on File Type Date Recorded 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 Shazia Patiño rre Status:Active Cancer Comments:Mother. Maternal Gr andfather. Sister. Breast- mother, grandmotherMelanoma- sister Status:Active Heart Disease Comments:Father. Status:Active Hypercholesterolemia Comments:Father. Status:Active Hypertension Comments:Father. Status:Active Kidney Disease Comments:Father. Status:Active Relationship Condition Age at Onset Recorded Date/T navi Not Specified Malignant neoplasm of breast Unknown Hypertension Unknown Summary Purpose Chief Complaint and Reason for Visit Chief Complaint Admit Date UPPER BLEPH October 05, 2024 2:09p m Chief Complaint Admit Date UPPER BLEPH October 05, 2024 2:09p m PREOP November 20, 2024 4:14 pm Reason for Visit Admit Date Brow ptosis, bilateral October 05, 2024 2: 09pm Dermatochalasis of both upper eyelids Ju 2024 2:09pm Additional Source Comments Source Comments (unrecognize d section and content) In the event this informatio n is protected by the Federal Confidentiality of Alcohol and Drug Abuse Patient Records regulations: The Federal rules restrict any use of the information to criminally investigate or prosecute any alcohol or drug abuse patient.[facility] Center[facility] the event this information is protected by the Federal Confidentiality of Alcohol and Drug Abuse Patient Records regulations: The Federal rules restrict any use of the information to criminally investigate or prosecute any alcohol or drug abuse patient.[facility] Center[facility] the event this information is protected by the Federal Confidentiality of Alcohol and Drug Abuse Patient Records regulations: The Federal rules restrict any use of the information to criminally investigate or prosecute any alcohol or drug abuse patient.[facility] Center[facility] the event this information is protected by the Federal Confidentiality of Alcohol and Drug Abuse Patient Records regulations: The Federal rules restrict any use of the information to criminally investigate or prosecute any alcohol or drug abuse patient.[facility] Center[facility] the event this information is protected by the Federal Confidentiality of Alcohol and Drug Abuse Patient Records regulations: The Federal rules restrict any use of the information to criminally investigate or prosecute any alcohol or drug abuse patient.[facility] the event this information is protected by the Federal Confidentiality of Alcohol and Drug Abuse Patient Records regulations: The Federal rules restrict any use of the information to criminally investigate or prosecute any alcohol or drug abuse patient.[facility] Center[facility] the event this information is protected by the Federal Confidentiality of Alcohol and Drug Abuse Patient Records regulations: The Federal rules restrict any use of the information to criminally investigate or prosecute any alcohol or drug abuse patient.[facility] Center[facility] the event this information is protected by the Federal Confidentiality of Alcohol and Drug Abuse Patient Records regulations: The Federal rules restrict any use of the information to criminally investigate or prosecute any alcohol or drug abuse patient.[facility] Center[facility] the event this information is protected by the Federal Confidentiality of Alcohol and Drug Abuse Patient Records regulations: The Federal rules restrict any use of the information to criminally investigate or prosecute any alcohol or drug abuse patient.[facility] Center[facility] the event this information is protected by the Federal Confidentiality of Alcohol and Drug Abuse Patient Records regulations: The Federal rules restrict any use of the information to criminally investigate or prosecute any alcohol or drug abuse patient.[facility] Care Teams (unrecognized sec tion and content) Quiller Hand Relationship Specialty Start Date End Date Prerna Meléndez MD [address] [place] [address] PCP - General Internal Medicine 11/27/16 Quiller Hand Relationship Specialty Start Date End Date Prerna Meléndez MD [address] [place] [address] PCP - General Internal Medicine 11/27/16 Quiller Hand Relationship Specialty Start Date End Date Prerna Meléndez MD [address] [place] [address] PCP - General Internal Medicine 11/27/16 Quiller Hand Relationship Specialty Start Date End Date Prerna Meléndez MD [address] [place] [address] PCP - General Internal Medicine 11/27/16 12/24/22 Quiller Hand Relationship Specialty Start Date End Date Prerna Meléndez MD [address] [place], [place] [id number] PCP - General Internal Medicine 11/27/16 12/24/22 Quiller Hand Relationship Specialty Start Date End Date Prerna Meléndez MD [address] [place], [place] [id number] PCP - General Internal Medicine 11/27/16 12/24/22 Team Status: Active Member Role Status Dates Dr. Aaliyah Vigil MD Family Provider Active Team Status: Inactive Member Role Status Dates Dr. Jalil Garcia MD Attending Provider Active Start: October 05, 2024 End: October 05, 2024 Team Status: Inactive Member Role/Relationship Status Dates Dr. Jalil Garcia MD Attending Provider Active Start: October 05, 2024 End: October 05, 2024 Team Status: Inactive Member Role/Relationship Status Dates Dr. Jalil Garcia MD Attending Provider Active Start: November 20, 2024 End: November 20, 2024 Reason for Visit (unrecogniz ed section and content) Reason Comments Radiology US Specialty Diagnoses / Procedures Referred By Contac t Referred To Contact [facility] Diagnoses Category 3 mammography result with short follow-up interval suggested for probably benign finding Procedures US BREAST LTD RT US BREAST UNI REAL TIME WITH IMAGE LIMITED Ashly Sewell APRN.CN [address] [place] [address] [facility] [address] [place] [address] Referral ID Status Reason Start Date Expiration Date V isits Requested Visits Authorized [id number] Closed Auto-Generate d Referral 11/25/2021 12/25/2022 1 1 Reason Comments Radiology Invasive Breast Procedure Specialty Diagnoses / Procedures Referred By Contac t Referred To Contact [facility] Diagnoses Abnormal mammogram Procedures US BIOPSY BREAST RT BREAST BIOPSY W/ULTRASOUND GUIDANCE Phillip Stewart MD [address] [employer] [address] [address] [facility] [address] [place] [address] Referral ID Status Reason Start Date Expiration Date V isits Requested Visits Authorized [id number] Closed Auto-Generate d Referral 02/26/2021 03/28/2022 1 1 Specialty Diagnoses / Procedures Referred By Contac t Referred To Contact [facility] Diagnoses Abnormal mammogram Procedures US BREAST LTD RT US BREAST UNI REAL TIME WITH IMAGE LIMITED Leeanna Delgado MD [address] [place] [address] [facility] [address] [place] [address] Referral ID Status Reason Start Date Expiration Date V isits Requested Visits Authorized [id number] Closed Auto-Generate d Referral 07/21/2022 02/20/2023 1 1 Reason Comments Urinary Problem burning with urinati on and nausea x 2 days INFORMATION SOURCE (unrecogn ized section and content) DATE CREATED AUTHOR 09/10/2024 [facility] DATE CREATED AUTHOR AUTHOR'S ORGANIZ ATION 11/21/2024 [facility] Goals (unrecognized section and content) Goals may be documented in a n alternate sectionGoals may be documented in an alternate section FOR RECORDS PERTAINING TO PATIENTS WHO ARE OR HAVE BEEN ENROLLED IN A CHEMICAL DEPENDENCY/SUBSTANCEABUSE PROGRAM, SOME INFORMATION MAY BE OMITTED. This clinical summary was aggregated from multiple sources. Caution should be exercised in using it in the provision of clinical care. This summary normalizes information from multiple sources, and as a consequence, information in this document may materially change the coding, format and clinical context of patient data. In addition, data may be omitted in some cases. CLINICAL DECISIONS SHOULD BE BASED ON THE PRIMARY CLINICAL RECORDS. [employer] provides no warranty or guarantee of the accuracy or completeness of information in this document.
[2024-11-22] MEDS: Lactated Ringers 1,000 ML 15 ML IV (06:43)
--- NOTE | 2024-11-22 06:50 | PRE.ANES_ITS ---
ASA Classification* ASA Classification ASA Classification: 2 Assessment & Plan Anesthesia* Anesthesia Assessment Anesthesia Assessment: Discussed sedation and/or anesthesia options, risks, benefits, and alternatives with patient/parents/legal guardian/POA. Questions invited. The patient/parents/legal guardian/POA seems to understand and agrees to proceed with anesthesia plan. Reviewed the physical assessment, medical history, allergy history and patient home medications list prior to surgery/procedure/anesthetic and documented any changes. Performed airway and anesthesia risk assessments. Anesthesia Type Anesthesia Type: MAC History Source History Obtained from:: Patient and Chart Anesthesia Focused Assessment* Temperature: 98.3 F Pulse Rate: 68 Blood Pressure: 152/63 Respiratory Rate: 16 Pulse Ox: 99 Oxygen Delivery Method: Room Air Airway Assessment Mouth opens: >3 cm Mallampati Score: IV Teeth Condition: Caps/Crowns (Patient has couple crowns. They are tight.) Neck Range of motion (ROM): Full ROM Labs Anesthesia Preop lab: CBC WBC 7.8 K/mm3 (4.4-11.0) 05/01/14 16:00 05/01/14 RBC 4.23 M/mm3 (4.2-5.4) 05/01/14 16:00 05/01/14 Hgb 13.1 g/dl (12.0-15.0) 05/01/14 16:00 05/01/14 Hct 39.2 % (37-47) 05/01/14 16:00 05/01/14 Plt Count 236 K/mm3 (150-450) 05/01/14 16:00 05/01/14 CHEMISTRY Potassium 3.5 mmol/L (3.5-5.1) 05/01/14 16:00 05/01/14 Sodium 138 mmol/L (136-145) 05/01/14 16:00 05/01/14 BUN 10 mg/dL (7-18) 05/01/14 16:00 05/01/14 Creatinine 1.0 mg/dL (0.6-1.0) 05/01/14 16:00 05/01/14 Glucose 85 mg/dL (70-110) 05/01/14 16:00 05/01/14 COAG Pre-Assessment Diagnosis/Proposed Procedure Planned Operative Procedure(s): (B) Upper eyelid blepharoplasty and brow lift Anesthesia History Anesthesia History - ssrs report developer: Anesthesia History - ssrs report developer Hx Hospitalization No 11/08/24 15:44 Any Problems With Anesthesia No 11/08/24 15:44 Cholinesterase deficiency No 11/08/24 15:44 You/Your Family Experience No 11/08/24 15:44 fever (hyperthermia) with Relationship Recent Exposure to Contagious No 11/22/24 06:28 Disease Does patient have nerve No 11/08/24 15:44 stimulator Patient instructed to have device shut off --Does patient have Pacemaker No 11/22/24 06:28 or ICD? When Was Last Pacemaker Check QUESTION #4 FULL TEXT: You/Your Family Experience fever (hyperthermia) with Anesthesia Last Oral Intake Last Oral intake: Last Oral Intake NPO since 21:30 11/22/24 06:28 Meds taken in AM with sips of No 11/22/24 06:28 water? Meds patient instructed to take am of surgery PONV PONV - ssrs report developer: PONV - ssrs report developer Female Yes 11/08/24 15:44 HX of Motion Sickness No 11/08/24 15:44 HX of N/V After Surgery No 11/08/24 15:44 Non-Smoker Yes 11/08/24 15:44 Duration of Surgery greater No 11/08/24 15:44 than 60 minutes Number of Risk Factors 2 11/08/24 15:44 PONV Score Moderate Risk 11/08/24 15:44 Height & Weight Height & Weight: Anesthesia: Height & Weight Height 4 ft 11 in 11/22/24 06:28 Weight: 65 kg 11/22/24 06:28 Body Mass Index (BMI) 28.9 11/22/24 06:28 Respiratory Assessment Respiratory Assessment - ssrs report developer: Respiratory Tract Infection Hx - ssrs report developer Hx Respiratory Tract Infection No 11/08/24 15:44 STOP Sleep Apnea STOP Sleep Apnea - ssrs report developer: STOP Sleep Apnea - ssrs report developer Hx Hypertension No 11/08/24 15:44 Hx Sleep Apnea No 11/08/24 15:44 CPAP BIPAP Do you snore loudly (louder No 11/08/24 15:44 than talking or can be heard Do you often feel tired/ No 11/08/24 15:44 fatigued/ sleepy during daytime? Has anyone observed you stop No 11/08/24 15:44 breathing during sleep? STOP Results Negative 11/08/24 15:44 QUESTION #5 FULL TEXT : Do you snore loudly (louder than talking or can be heard through closed doors)? 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 Specify any problems Hx of Preganancy in last 3 No 11/08/24 15:44 Months Nurse Filling Out Transfusion VCHRISTIN 11/08/24 15:44 & Questions: Date: 11/08/24 11/08/24 15:44 Time: 15:45 11/08/24 15:44 Patient unable to answer at this time (ie. confused, unrespo /Reproduction History /Reproductive History - ssrs report developer: /Reproductive Hx- ssrs report developer Hx Now Gestational Age (in weeks): EDC: Hx Hx Para Hx Section SAB Active Medications Active Medications: Current Medications Generic Name Dose Route Start Last Admin Trade Name Freq PRN Reason Stop Dose Admin Cefazolin Sodium 2 gm/ Sodium 110 mls @ 200 mls/hr 11/22/24 07:30 Chloride IV 11/22/24 08:02 INTRAOP ONE Lactated Ringer's 1,000 mls @ 15 mls/hr 11/22/24 06:00 11/22/24 06:43 IV 15 mls/hr .Q48H CHECO Administration PFSH Medical History Wears glasses Kidney stones Migraine headache MTHFR gene mutation Non-smoker History of irregular heartbeat Home Medications Medication Instructions Recorded Last Taken Type ashwagandha root extract 300 mg 300 mg PO DAILY Unknown History capsule fexofenadine 180 mg tablet 180 mg PO BID 11/08/24 Unkn own History (Raysa Allergy) magnesium 250 mg tablet 250 mg PO DAILY 11/08/24 Unk nown History omega 3 350 mg-dha 235 mg-epa 90 1 cap PO DAILY Unknown History mg-fish oil 597 mg capsule,delay rel (Paton-3) vitamin A 2,400 mcg capsule 2,400 mcg PO DAILY 5 Unknown History vitamin D3 25 mcg (1,000 unit)-vit 1 tab PO DAILY 01/25 Unknown History K2 90 mcg disintegrating tablet (D3 Plus K2 Dots) Allergy/AdvReac Type Severity Reaction Status Date / Time procaine (From Novocain) AdvReac Severe Nausea/Vom/ Verified 11/22/24 06:24 Diarrhea Opioids - Morphine Analogues AdvReac NEEDS Verified 11/22/24 06:24 FOLLOW-UP Family History Other Breast cancer Hypertension Surgical History History of loop electrosurgical excision procedure (LEEP) of cervix Hx of bilateral breast reduction surgery Social History Smoking Status: Never smoker Review of Systems (Anesthesia) ROS Narrative System reviewed and no additional complaints, except as documented.
--- NOTE | 2024-11-22 07:03 | HP.PCM.SX_ITS ---
HPI - General HPI Narrative Karis Lockhart is a delightful 74-year-old female referred to us by her double reamer operator for an upper eyelid blepharoplasty consultation. Patient reports that she has been having issues with seeing for the past couple of years as her eyelid skin has become more more redundant. She reports that she has to move her entire neck when stopped at a stoplight to see the light, or when looking up at people were taller than her, as the upper eyelid skin obstructs her vertical and horizontal gaze. Patient has never had any eye pathology before. She has never had any eye surgery. She does have dry eyes. Patient is not a smoker. No personal or family history of bleeding or clotting problems. 20 November 2024: I talked to the patient extensively today about the upcoming surgery. We talked about the risks, benefits, and alternatives of the surgery, as well as the details of the surgery (including planned incisions, and anticipated postoperative course and swelling). Current Encounter (DATE OF SURGERY H&P UPDATE): I saw and examined the patient this morning in pre-operative holding. We discussed risks and benefits of today's surgery and they would like to proceed. NO CHANGE in health history since last seen and evaluated. Ready to proceed with surgery. [facility] Medical History Wears glasses Kidney stones Migraine headache MTHFR gene mutation Non-smoker History of irregular heartbeat Home Medications Medication Instructions Recorded Last Taken Type martindha root extract 300 mg 300 mg PO DAILY Unknown History capsule fexofenadine 180 mg tablet 180 mg PO BID 11/08/24 Unkn own History (Raysa Allergy) magnesium 250 mg tablet 250 mg PO DAILY 11/08/24 Unk nown History omega 3 350 mg-dha 235 mg-epa 90 1 cap PO DAILY Unknown History mg-fish oil 597 mg capsule,delay rel (Buchanan-3) vitamin A 2,400 mcg capsule 2,400 mcg PO DAILY 5 Unknown History vitamin D3 25 mcg (1,000 unit)-vit 1 tab PO DAILY 01/25 Unknown History K2 90 mcg disintegrating tablet (D3 Plus K2 Dots) Allergy/AdvReac Type Severity Reaction Status Date / Time procaine (From Novocain) AdvReac Severe Nausea/Vom/ Verified 07/23/25 06:24 Diarrhea Opioids - Morphine Analogues AdvReac NEEDS Verified 11/22/24 06:24 FOLLOW-UP Family History Other Breast cancer Hypertension Surgical History History of loop electrosurgical excision procedure (LEEP) of cervix Hx of bilateral breast reduction surgery Social History Smoking Status: Never smoker Vital Signs Vital Signs Vital Signs: 11/22/24 06:28 11/22/24 06:28 11/22/24 06:55 Temperature 98.3 F 98.3 F Temperature Source Temporal Pulse Rate 68 68 Respiratory Rate 16 16 Respiratory Pattern Normal Blood Pressure 152/63 H 152/63 H Blood Pressure Mean 92 Blood Pressure Source Monitor Blood Pressure Position Semi-Fowlers Blood Pressure Location Left Arm Pulse Ox 99 99 Oxygen Delivery Method Room Air Room Air Weight Weight: 143 lb 4.807 oz Body Mass Index (BMI) 28.9 Physical Exam Narrative Pupils: PERRL EOM: EOM intact bilaterally Scalp: High hair line Forehead: Convex. Some Chronic frontalis use to overcome dermatochalasis/brow ptosis. (horizontal rhytids at rest). I had her close her eyes, relax her forehead, and then open her eyes again and there was significant visual field obstruction. Eyebrows: Ptotic at the orbital rim bilaterally. Patient wears makeup to pain brows, but also has hair (does not completely pluck). Symmetric brow elevation ( frontal branch of facial nerve working). Eyelids: * MRD 1 was 5 mm * Good levator function (approximately 14 mm) * No lagophthalmos * Snap back test: Slow, and there's ~1 cm of lower eyelid retraction * Neutral vector * Upper lid dermatochalasis bilaterally, obstructing vertical gaze bilaterally secondary to the skin. The skin is hanging over her eyelashes and the lateral portions of her lid margin. Lower eyelid has puffy retroseptal fat with tear trough Assessment & Plan Assessment/Plan (1) Dermatochalasis of both upper eyelids: (2) Brow ptosis, bilateral: PLAN: Plan Patient has 2 separate problems, one is brow ptosis contributing to the redundant upper eyelid skin, the other is the redundant upper eyelid skin in general. I showed the patient the contributions of the brow lift by lifting her brows in front of a mirror today in clinic. I talked her about the options which are brow lift with blepharoplasty versus blepharoplasty alone. I talked her about the details of both procedures, and how the brow lift reduces the amount of skin resected from the blepharoplasty, and under blepharoplasty alone we may resect more skin. I would recommend a skin only blepharoplasty for her with potentially a small strip of orbicularis. I talked her about the risks of worsening dry eyes, which are less likely with a skin only blepharoplasty. She is accepting of these risks. In the setting of the dry eyes I would not recommend a lower eyelid blepharoplasty, and patient agreed. I believe to improve her visual kelly, a pretrichial/coronal and likely subcutaneous brow lift would help (hairline to high for endoscopic and patient is in agreement with this as she would not like to displace her hairline posteriorly). I also believe removal of upper eyelid redundant skin would improve her visual kelly. She has positive visual field testing already. Plan to submit for insurance. I talked her about the risks of surgery, including infection bleeding, damage to surrounding structures (including the frontal branch of the facial nerve), wound healing complications, poor scarring, anticipated scar placement, failure to obtain desired result, postoperative asymmetries (we talked about existing asymmetries), redundant upper eyelid skin despite her best efforts, lagophthalmos, nasal webbing, and the risks of anesthesia. Photos obtained today. CPT codes for insurance prior authorization are as follows: Blepharoplasty 21783 (50 modifier), Brow Lift 51078 (50 modifier) No personal or family history of bleeding or clotting problems. 20 November 2024: I talked to the patient extensively about planned incisions and planned operative course/intervention (described the procedure in detail). She was in agreement with the plan for an open pretrichial/coronal brow lift as well as possible blepharoplasty (discussed potential for deferring blepharoplasty if too much pull from the brow lift and concern for lagophthalmos being caused by the Bleph). I talked to her extensively about the risks of the surgery including damage to the frontal branch of the facial nerve, numbness to the forehead and pain, as well as bleeding, wound healing complications, poor scarring, hair loss, lagophthalmos, asymmetry (existing asymmetries and anticipated asymmetries), failure to obtain the desired result, need for revisions, and need for repeat operations. I talked about the risk of infection and complications from anesthesia including cardiovascular problems. She understands the plan for the surgery well and the anticipated postoperative course. She understands that there will 100% be numbness on her anterior scalp (which may or may not return sensation) and this is part of the procedure. All of her questions were answered. She is in agreement to proceed. INTERVAL H&P PLAN, DATE OF SURGERY: We will proceed with surgery today. I re-iterated the above noted risks, benefits, and alternatives to the surgery. She understands the anticipated numb area on the scalp from this technique. She would like to proceed. I marked her in pre-operative holding.
[2024-11-22] MEDS: Bupiv/Epi 0.25% 30 ML Vial (07:50)
[2024-11-22] MEDS: Lidocaine 1% /Epi 1:100 (20ml) 20 ML Vial (07:50)
--- NOTE | 2024-11-22 07:51 | OP.PCM_ITS ---
Operative Report (Standard) Operative Information Date of Procedure: 11/22/24 Pre-Operative Diagnosis: 1) Brow Ptosis 2) Dermatochalasis Post-Operative Diagnosis: Same Surgery/Procedure Performed: 1) Brow lift (coronal/pretrichial), CPT: 55685 (50 modifier) 2) Upper eyelid blepharoplasty (skin only), CPT: 78072 (50 modifier) supervisor grove: Yes Post Tensioning Ironworker Helper: Maggie Gatica Tasks completed by assistance coordinator: Closing and Retracting Type of Anesthesia: General/Supplemental (25 cc of a 50/50 mixture of 0.25% Marcaine with 1:200,000 epinephrine and 1% lidocaine with 1:200,000 epinephrine ) RN Documented Start/Stop Times: Operation Date: 11/22/24 07:30 Case Time Into Pre-Op 11/22/24 05:57 Anesthesia Start 11/22/24 07:23 Into Room 11/22/24 07:23 Out of Pre-Op 11/22/24 07:30 Procedure Start 11/22/24 07:58 Procedure End 11/22/24 09:41 Anesthesia End 11/22/24 09:48 Out of Room 11/22/24 09:48 Into Recovery 11/22/24 09:50 Into Phase II Recovery 11/22/24 10:33 Out of Recovery 11/22/24 10:33 Out of Phase II 11/22/24 11:44 Procedure Start Time: 07:58 Procedure Stop Time: 09:41 Select all DRAINS/GRAFTS/IMPLANTS that apply: None Estimated Blood Loss: 25 cc Specimen collected: No Description of surgery: Indications: Patient is a delightful 74-year-old female with brow ptosis and upper lid dermatochalasis. Presents today for brow lift and blepharoplasty. I talked her preoperatively about the incisions and the planned procedure and she elected to proceed. She understood the risks, benefits, and alternatives to the procedure. Procedure details: The patient was taken back to the operating room where she was administered general anesthesia and prepped and draped in sterile fashion. Dilute Betadine was used for the prep (ophthalmic Betadine). Care was taken to protect the eyes with scleral navarro and eye lubricant. Local was injected along the scalp/for ehead markings for the planned incisions for the pretrichial/coronal brow lift and it was given time to take effect. All proper timeouts were performed. A 15 blade scalpel was used to incise along the hairline medially and into the scalp laterally. A Bovie was then used to dissect carefully through the subcutaneous tissue and the galea into a subgaleal plane. Centrally the dissection was carried out along the forehead in a subgaleal plane until 2 cm above the orbital rim where the plane was transitioned into a subperiosteal plane where the periosteum was carefully elevated off of the forehead and the orbital rim with the periosteal elevator with care taken to preserve the supratrochlear and supraorbital nerves. Laterally the incision was taken down through the temporoparietal fascia and along the deep temporal fascia to dissect caudally with care taken to stay in this deep plane to prevent injury to the frontal branch of the facial nerve. The temporal septum/temporal ligamentous adhesion was then carefully elevated with a periosteal elevator to connect the deep temporal fascial plane laterally to a subperiosteal plane on the forehead, again with care taken to stay deep to the facial nerve. Hemostasis was obtained with careful Bovie electrocautery and irrigation. We then sat the patient up. The release of these brow attachments (septum, zone of adhesion, and supraorbital rim) demonstrated significant brow laxity/movement and the skin and scalp was then tailor tacked back into a cephalad position by darting along the flap and careful examination how much to safely resect. With approximately 1.2 cm of skin and scalp resection, the brow was elevated symmetrically into a good position above the orbital rim. The brow position was then also checked by considering a theoretical oval formed by the eyebrow above and the nasojugal fold below the globe, with the pupil at its equator. The deep layer of galea was then closed with 3-0 PDS deep sutures followed by some 4-0 Vicryl sutures. [place] were placed in the scalp area laterally and 6-0 Prolene vertical mattress sutures were placed in the pretrichial areas of the incision. I then considered a blepharoplasty; this was determined to be safe, as there was still some excess upper eyelid skin following the brow lift that could be safely resected based on the pinch test. I adjusted my upper marissa as needed, keeping the lower eyelid crease marissa the same (1 cm above the eyelid margin). The area was injected with local, which was given time to take effect. I think excised the excess skin with a 15 blade scalpel (skin only). There was 22 mm of skin left between the eyelid margin and the brow. Hemostasis was obtained with Bovie electrocautery. The same procedure was performed on the contralateral side. The eyelids were then closed with a running 6-0 Prolene suture (tails were taped medially and laterally). The patient tolerated the procedure well. The scleral navarro were removed. Her hair was washed Bacitracin was applied along the incision line on the scalp and erythromycin ointment applied to the upper eyelids. She was awaken and taken to the PACU in stable condition. Surgical Findings: Heavy upper eyelid skin weighing down the eyelid margin Complications Complications: No
[2024-11-22] MEDS: Povidone Iodine 30 ML Opthalmic Sol 1 DRP (07:55)
[2024-11-22] MEDS: Bacitracin 500 UNITS/GM PACKET (09:14)
[2024-11-22] MEDS: Erythromycin Base 1 OPTH.TUBE 1 APPLIC (09:32)
--- NOTE | 2024-11-22 09:55 | PCM.POST.ANE ---
Anesthesia: Postop Eval I Current Vital Signs Temperature: 97 F Pulse Rate: 85 Blood Pressure: 143/73 Respiratory Rate: 14 Pulse Ox: 98 Assessment Airway patent: Yes Spontaneous unlabored respirations: Yes nausea: No Vomiting: No Anesthesia Complication: No Fluid Hydration Crystalloid volume administer (ml): 500 Total IV fluid infused: 500 Progress Note Anesthesia document: Postop Eval 1 completed: Yes
--- NOTE | 2024-11-22 10:07 | PCM.POSTANE2 ---
Anesthesia Postop Eval I Sum Anesthesia Postop Eval I Summary Anesthesia Postop Eval I Summary: Anesthesia Postop Eval I: Assessment Summary Airway patent Spontaneous unlabored respirations Mental status nausea Vomiting Anesthesia Postop Eval I: Fluid Summary Crystalloid volume administer (ml) Colloids volume administered ( ml) Blood Product volume administered (ml) Total IV fluid infused Anesthesia Postop Eval I: Summary Notes Anesthesia Complication Anesthesia Complication Comment: Post-operative progress note Anesthesia: Postop Eval II Evaluation Mental status: Awake and Calm Pain Level: 0 nausea: No Vomiting: No Complications Anesthesia Complication: No
== END 2024-11-22 11:44 | disposition home or self-care (01) ==
LOC: SDC 05:57 → AC 05:57
PROVIDERS: Referring Provider Surgery Plastic and Reconstructive Surgery; Visit Provider Surgery Plastic and Reconstructive Surgery
PROC: (CPT 67900; principal; 2024-11-22 07:20)
DX: H57.813 Brow ptosis, bilateral (principal); H02.831 Dermatochalasis of right upper eyelid; H02.834 Dermatochalasis of left upper eyelid; Z79.899 Other long term (current) drug therapy
CPT/HCPCS: 67900; 15823; 00103; J2405